=== PATIENT | female | born 1945 | race Caucasian/White ===

== ENCOUNTER → 2017-03-12 | Outpatient (CLI) | payer MEDICARE ==
[~2017-03-12] MED LIST: ESTR0.5T9 PO; FISH1000 PO; FOLI1TAB PO; FOLI1TAB6 PO; GLUC500C56 PO; MEDR2.5 PO; MULT-65 PO; OYST500T77 PO; TAB-TAB PO; TYLE325T PO; VENL37.585 PO; VIGA0.5D OS; VITA250T3 PO; VITA250T32 PO; XIBROM LEFT EYE; [UNRECOGNIZED DRUG - OTHER] RIGHT EYE
[2017-03-12 13:50] LABS: AUTOMATED NEUTROPHIL # 1.6 TH/MM3 (1.8-7.7); BASOPHIL % 1.1 % (0.0-2.0); EOSINOPHIL # 0.1 TH/MM3 (0-0.4); EOSINOPHIL % 2.5 % (0.0-4.0); HEMATOCRIT 31.1 % (35.0-46.0); HEMO FLAGS DIFF FINAL; LYMPH % 41.4 % (9.0-44.0); LYMPHOCYTE # 1.5 TH/MM3 (1.0-4.8); MEAN CELL VOLUME 93.2 FL (80.0-100.0); MEAN CORPUSCULAR HEMOGLOBIN 31.5 PG (27.0-34.0); MEAN CORPUSCULAR HGB CONC 33.8 % (32.0-36.0); MONO % 10.6 % (0.0-8.0); NEUT % 44.4 % (16.0-70.0); PLATELET COUNT 193 TH/MM3 (150-450); RED BLOOD COUNT 3.34 MIL/MM3 (4.00-5.30); RED CELL DISTRIBUTION WIDTH 13.7 % (11.6-17.2); WHITE BLOOD COUNT 3.6 TH/MM3 (4.0-11.0)
[2017-03-12 14:06] LABS: BLOOD, URINE NEG (NEG); COMMENT (UR) CULT NOT INDICATED; CULTURE IF INDICATED CULT NOT INDICATED; GLUCOSE,URINE NEG (NEG); KETONE, URINE NEG (NEG); NITRITE,URINE NEG (NEG); URINE COLOR COLORLESS (YELLW/STRAW)
== END ==
LOC: CPRE 12:31
PROVIDERS: ATTEND Obstetrics & Gynecology
DX: Z01.810 Encounter for preprocedural cardiovascular examination (principal); Z01.812 Encounter for preprocedural laboratory examination; N95.0 Postmenopausal bleeding; N88.2 Stricture and stenosis of cervix uteri
CPT/HCPCS: 36415; 81001; 85025

== ENCOUNTER → 2017-03-14 | Day surgery (SDC) | payer MEDICARE ==
[~2017-03-14] MED LIST changes: +ACETAMINOPHEN 1000 MG/100 ML 0 ML IV ONE; +ACETAMINOPHEN 1000 MG/100 ML VIAL IV SCH; +CHLORHEXIDINE GLUCONATE 2 % 1 PACK (2 CLOTHS) TOPICAL PRN; +DEXAMETHASONE SOD PHOS 4 MG/ML VIAL IV ONE; +DO NOT ADM ANY ANTICOAGULANT DRUGS PRN; -ESTR0.5T9 PO; -FISH1000 PO; -FOLI1TAB PO; -GLUC500C56 PO; +INSULIN HUMAN REGULAR 1,000 UNITS/10 ML VIAL SQ PRN; +KETOROLAC TROMETHAMINE 30 MG/ML (IVP) VIAL IV PUSH ONE; +LACTATED RINGER'S 1000 ML IV PRN; +LIDOCAINE HCL 1% PF 5 ML AMPULE INFIL ONE; -MEDR2.5 PO; +METOCLOPRAMIDE HCL 10 MG/2 ML VIAL IV ONE; +METOPROLOL TARTRATE 25 MG TAB PO PRN; +MIDAZOLAM HCL 2 MG/2 ML VIAL IV ONE; +ONDANSETRON HCL 4 MG/2 ML VIAL IV PUSH ONE; -OYST500T77 PO; +POVIDONE IODINE 5% (ANTISEPSIS KIT) 4 APPLICATIONS EACH NARE PRN; +PROPOFOL 200 MG/20 ML AMP IV ONE; +SODIUM CHLORID 0.9% 500 ML IV PRN; +SUGAMMADEX SODIUM 200 MG/2 ML VIAL IV PUSH ONE; -TAB-TAB PO; -VENL37.585 PO; -VIGA0.5D OS; -VITA250T32 PO; -XIBROM LEFT EYE; -[UNRECOGNIZED DRUG - OTHER] RIGHT EYE; +ceFAZolin 1,000 MG/NS 100 ML IV SCH
--- NOTE | 2017-03-14 06:55 | MH ---
cc: FIDEL WILLAMS MD DATE OF ADMISSION 03/14/2017 ADMITTING DIAGNOSIS Postmenopausal bleeding. HISTORY OF PRESENT ILLNESS The patient is a 72-year-old white female para 2-0-2 with a 1-year history of intermittent vaginal bleeding, increased in December of 2016. Stopped ERT January 22, 2017 and bleeding has continued. A vaginal ultrasound on 12/18/2015 showed interval thickening to 5 mm. She is now admitted for surgical evaluation. PAST MEDICAL HISTORY/PREVIOUS SURGERY She had a history of left inguinal melanoma with wide excision. Had D&C in 1995. MEDICATIONS Include: 1. Calcium. 2. Folic acid. 3. Biotin. 4. Vitamins. ALLERGIES None. TRANSFUSIONS None. OBSTETRICAL HISTORY Two vaginal deliveries. 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 Alcohol, tobacco and drugs are none. FAMILY HISTORY Noncontributory. PHYSICAL EXAMINATION GENERAL: Well-nourished, well-developed white female. VITAL SIGNS: Stable. HEENT: Exam is normal. CHEST: Chest is clear. HEART: Regular rate. BREASTS: Symmetrical. ABDOMEN: Benign. DIRECTED EXAMINATION: Pelvic exam normal external genitalia and BUS. Vagina is normal. Cervix normal. Uterus normal size, shape, anterior, no adnexal masses. ASSESSMENT As above. PLAN The plan is for outpatient hysteroscopy, D&C. While in the office I explained the procedures, the risks and benefits and complications including infection, injury, bleeding and possible need for additional treatment explained and accepted. Fidel Willams MD JAW/EO /9:02 PM /6:51 AM
[2017-03-14 09:45] VITALS: BP 103/69; PULSE 65; RESP 18; TEMP 98.1; O2SAT 98
--- NOTE | 2017-03-14 10:43 | MP ---
cc: FIDEL WILLAMS M.D. DATE OF SURGERY 03/14/2017 PREOPERATIVE DIAGNOSIS Postmenopausal bleeding. POSTOPERATIVE DIAGNOSIS Postmenopausal bleeding. PROCEDURE Hysteroscopy, D&C. ANESTHESIA General LMA ESTIMATED BLOOD LOSS Less than 5 cc FLUIDS About 400 cc crystalloid. OBJECTIVE FINDINGS Following induction of adequate general LMA anesthesia, the patient was prepped and draped supine on the operating table in the dorsolithotomy position in the usual sterile fashion with the bladder being drained via in and out catheterization. Exam under anesthesia revealed a small anterior mid position uterus. No adnexal masses palpable. Speculum exam revealed a stenotic upper vagina with the anterior lip of the cervix flush with the anterior vaginal wall and minimal descent. With handheld retractors, the cervix exposed, grasped anteriorly with a single toothed tenaculum and sounded to 7 cm and dilated to #16 Hanks dilator. The hysteroscope was passed revealing a normal endocervix, very atrophic endometrium. The scope was withdrawn. Endocervical curettings obtained with a small serrated curet, endometrial small sharp curette. All instruments were removed. All counts were correct. The patient's legs taken out of the stirrups. She was awakened and taken to the recovery room in good condition. MD SARAH Blakely/BIJU /7:53 AM /10:34 AM
== END | disposition home or self-care (01) ==
LOC: HSDC 05:43
PROVIDERS: ATTEND Obstetrics & Gynecology
DX: N84.0 Polyp of corpus uteri (principal); N95.0 Postmenopausal bleeding; N88.2 Stricture and stenosis of cervix uteri
CPT/HCPCS: 00952; 58558; 88305; J0131; J0690; J1100; J1885; J2250; J2405; J3010; J7120